=== PATIENT | female | born 1990 | race Caucasian/White ===

== ENCOUNTER → 2018-06-01 01:24 | Observation (INO) ==
[2018-05-31 23:03] VITALS: BP 131/83
--- NOTE | 2018-05-31 23:34 | OB/GYN Progress Note ---
Date of Encounter: 05/31/18 Time of Encounter: 23:32 - Assessment and Plan (1) 38 weeks gestation of Current Visit: Yes Status: Acute Admitted to observation for possible rupture of membranes Cervical exam on arrival /- We will recheck cervix after vaginosis panel returns. Patient is without change we will send her home to follow-up for her next routine visit as previously scheduled (2) Vaginal discharge during in third trimester Current Visit: Yes Status: Acute Sterile speculum exam completed with moderate amount of green yellow discharge noted in vaginal vault. Sample obtained for vaginosis panel and fern Fern negative, suspect bacterial vaginosis Awaiting vaginosis panel results. Will treat as indicated (3) NST (non-stress test) reactive Current Visit: Yes Status: Acute FHR 150 bpm, moderate variability, 15 x 15 accelerations, no decelerations. Irregular contractions Subjective - Subjective Principal diagnosis: Possible SROM Interval history: Madiha is a at 38 weeks [address] Gupta who presents today with possible leaking of fluid 2 days. Patient reports positive movement, denies vaginal bleeding. States she was 4 cm on last exam at her routine visit this week. Antepartum ROS: loss of fluid, movement normal, no vaginal bleeding Objective - Vital Signs Vital Signs: Vital Signs Pulse Resp BP 05/31/18 22:54 109 15 131/83 Intake and Output 05/31/18 05/31/18 05/31/18 07:59 15:59 23:59 Other: Weight 112.945 kg Patient Weight 05/31/18 23:59 Weight 112.945 kg - Exam FHR: category 1 FHR comments: FHR 150 bpm, moderate variability, +15x15 accels, no decels. Irregular contractions Auscultation: bilateral: normal Abdomen: Present: normal appearance, soft, gravid Uterus: Present: normal Cervical dilation: 5 Cervix effacement: 90% station: -2 Comments: Per RN exam
[2018-06-01 00:51] LABS: Candida DNA Not Detected (Not Detect); Gardnerella DNA Not Detected (Not Detect); Trichomonas DNA Not Detected (Not Detect)
[2018-06-01 01:44] LABS: Amphetamine Screen,Urine Negative ng/mL (Cutoff=1000); Barbiturate Screen,Urine Negative ng/mL (Cutoff=200); Benzodiazepines Screen,Urine Negative ng/mL (Cutoff=200); Cannabinoid Screen,Urine Negative ng/mL (Cutoff = 50); Cocaine Screen,Urine Negative ng/mL (Cutoff= 300); Opiate Screen,Urine Negative ng/mL (Cutoff=300); Phencyclidine Screen,Urine Negative ng/mL (Cutoff=25)
== END | disposition home or self-care (01) ==
LOC: 1NENULAB
PROVIDERS: ADMIT Registered Nurse; ATTEND Registered Nurse

== ENCOUNTER 2018-06-04 23:55 | Inpatient (IN) ==
[2018-06-04 22:54] LABS: Amphetamine Screen,Urine Negative ng/mL (Cutoff=1000); Barbiturate Screen,Urine Negative ng/mL (Cutoff=200); Benzodiazepines Screen,Urine Negative ng/mL (Cutoff=200); Cannabinoid Screen,Urine Negative ng/mL (Cutoff = 50); Cocaine Screen,Urine Negative ng/mL (Cutoff= 300); Opiate Screen,Urine Negative ng/mL (Cutoff=300); Phencyclidine Screen,Urine Negative ng/mL (Cutoff=25)
[~2018-06-04 23:55] MED LIST: *HR* Nalbuphine 10 MG/ML AMPUL IVP PRN; Famotidine 20 MG/2 ML VIAL IVP PRN; Metoclopramide 10 MG/2 ML VIAL IVP PRN; Naloxone 0.4 MG/ML INJ IVP PRN; Ondansetron 4 MG/2 ML VIAL IVP PRN
[2018-06-05 00:28] LABS: Basophils % 0.3 %; Eosinophils # 0.1 K/mcL (0.0-0.6); Eosinophils % 0.9 %; Hematocrit 33.4 % (35.3-44.9); Immature Granulocytes % 1.4 % (0-4); Lymphocytes # 1.8 K/mcL (0.6-4.6); Lymphocytes % 17.8 %; Mean Corpuscular HGB Conc 32.9 g/dL (31.6-35.5); Mean Corpuscular Hemoglobin 29.2 pg (28.0-33.3); Mean Corpuscular Volume 88.6 fL (83.0-100.0); Mean Platelet Volume 10.1 fL (9.4-12.4); Monocytes # 0.6 K/mcL (0.0-1.3); Monocytes % 6.3 %; Neutrophils # 7.3 K/mcL (1.6-8.9); Platelet Count 208 K/mcL (140-400); Red Blood Count 3.77 M/mcL (3.82-4.97); Red Cell Distribution Width 16.8 % (11.5-14.5); Segmented Neutrophils % 73.3 %
[2018-06-05] MEDS: Ringers Solution, Lactated 1,000 ML IVC SCH ×4 (00:34→12:16)
--- NOTE | 2018-06-05 06:51 | OB/GYN History & Physical ---
Date of Encounter: 06/05/18 Time of Encounter: 06:45 Assessment and Plan (1) 39 weeks gestation of Current visit: Yes Status: Acute Admit for augmentation of labor GBS negative Augment with pitocin AROM after epidural per patient request Anticipate vaginal delivery POC per consult with Dr Jacobson History of Present Illness Chief complaint: Contractions HPI: Ms. Whitfield is a 28 year old at 39 weeks 0 days that presents to triage with c/o contractions. She progressed from 4cm to 6 cm during triage. She states positive movement. She denies headaches, vision changes, epigastric pain, leaking of fluid, and vaginal bleeding. She has had no complications this . Labs: GBS negative Hep B NR RPR NR Blood type B+ Varicella Immune Hep C NR Rubella Immune HIV NR Past Med Surg Social Fam HX - Past Medical History Medical history: thyroid disease Additional medical history: hypothyroidism, anemia Psychiatric history: anxiety, depression - Past Surgical History Surgical History: non-contributory Additional surgical history: wisdom teeth extraction - Social History Smoking Status: Never smoker Smokeless Tobacco Status: No Alcohol use: none Drug use: none - Family History Sister Living Status: Still Living Hx Family Cardiac Disorders: No Hx Family Respiratory Disorders: No Hx Family Cancer: No Hx Family GI Disorders: No Hx Family Endocrine Disorder: No Hx Family Neuromuscular Disorders: No Hx Family Neurologic Disorders: No Hx Family HEENT Disorders: No Hx Family Autoimmune Disorders: No Obstetrical History - Pregnancies : 3 Para: 2 Term: 2 : 0 Ab's: 0 Livin Medications and Allergies Ferrous Sulfate 325 mg PO DAILY 05/31/18 [History] Levothyroxine Sodium 25 mcg PO DAILY 05/31/18 [History] Omeprazole 05/31/18 [History] Formula Tablet 1 tab PO DAILY 05/31/18 [History] Allergy/AdvReac Type Severity Reaction Status Date / Time [facility] [[facility]] Allergy Hives Verified 06/04/18 22:13 penicillin G procaine Allergy Hives Verified 06/04/18 22:13 Review of System OB All systems PM: reviewed and no additional remarkable complaints except as stated Exam - Constitutional Constitutional: well developed, well nourished, no acute distress, average body habitus - HEENT HEENT: Normocephaly, Mucus Membranes Moist - Neck Neck exam: full ROM - Lungs Respiratory exam: CTAB - Cardiovascular Cardiovascular exam: RRR, +S1, +S2 - Abdomen Abdomen: Present: bowel sounds normal, gravid, non tender - Extremities Extremities exam: normal capillary refill, normal inspection, radial pulses palpable and symmetrical Deep Tendon Reflex Grade: 2+ Normal - Vulva Vulva: bilateral: normal - Vagina Vagina: Present: normal moisture - Cervix Dilation: 6 (Per RN exam) Effacement: 90 Station: -2 - Uterus Uterus exam: Present: normal size, normal contour - Anus/Rectum Anus/Rectum: Present: normal perianal skin Results Result Diagrams: 06/05/18 00:00 Abnormal lab results RBC 3.77 M/mcL (3.82-4.97) L 06/05/18 00:00 Hgb 11.0 g/dL (11.5-15.4) L 06/05/18 00:00 Hct 33.4 % (35.3-44.9) L 06/05/18 00:00 RDW 16.8 % (11.5-14.5) H 06/05/18 00:00 All other labs normal. - VTE Reasons for not Prescribing Prophylaxis: Treatment not Indicated - Low risk for VTE
[2018-06-05] MEDS ORDERED: Oxytocin 20 units/ LR 1000 mL 20 UNIT/1,000 ML BAG IVC SCH ×2 (07:00→16:50)
[2018-06-05] MEDS ORDERED: Bupivacaine-MPF 0.25% 10 ML VIAL EP ONE (09:39)
[2018-06-05] MEDS ORDERED: *HR* FentaNYL (PF) 100 MCG/2 ML VIAL EP ONE (09:39)
[2018-06-05] MEDS ORDERED: *HR* FentaNYL (PF) 100 MCG/2 ML VIAL ONE (09:45)
[2018-06-05] MEDS ORDERED: Epidural Premix (fent/bupiv) 110 ML EP SCH (09:45)
[2018-06-05] MEDS ORDERED: Bupivacaine-MPF 0.25% 10 ML VIAL ONE (09:45)
[2018-06-05] MEDS ORDERED: Lidocaine -MPF 1% 5 ML AMPUL ONE (09:45)
--- NOTE | 2018-06-05 11:00 | Anesthesia Evaluation PreOp ---
Date of Encounter: 06/05/18 Time of Encounter: 10:15 - Past History Planned Operation: BRENDA Cardiac History: Denies any Significant Hx Pulmonary History: Asthma (well controlled) STORE MGR History: Denies Any Significant HX Other Medical History: Thyroid (hypothyroidism), Other (anxiety/depression) Anesthesia History: No Prior Anesthetic Complications (BRENDA x 2--no complications ; never had any procedure requiring GA; denies family h/o GA complications.) : Yes Alcohol Use: none Drug use: none Medications and Allergies Ferrous Sulfate 325 mg PO DAILY 05/31/18 [History] Levothyroxine Sodium 25 mcg PO DAILY 05/31/18 [History] Omeprazole 05/31/18 [History] Formula Tablet 1 tab PO DAILY 05/31/18 [History] Allergy/AdvReac Type Severity Reaction Status Date / Time Cefaclor [From [facility]] Allergy Hives Verified 06/04/18 22:13 penicillin G procaine Allergy Hives Verified 06/04/18 22:13 - Meds/Allergy Pre-op Review Medications Reviewed: Yes Allergies Reviewed: Yes Beta Blockers on Current Med List: No Anesthesia Results - Labs 06/05/18 00:00 Anesthesia Exam O2 Sat Height 1.68 m Height 1.68 m Weight 113.9 kg NPO (# of Hours): solids > 8hr Pain Scale: 8 Pain Scale Used: Numeric (1 - 10) - HEENT Pupil (Motor): Pupils equal Mallampati: II Teeth: Normal Oral Opening: Greater than 3 - STORE MGR LOC: Oriented STORE MGR Motor: Normal RUE, Normal LUE, Normal RLE, Normal LLE, Normal Face STORE MGR Sensory: Normal: RUE, LUE, RLE, LLE, Face - Cardiac Rhythm: Regular Murmur: None JVD: No Carotid Bruit: No - Pulmonary Breath Sounds: bilateral Clear Respiratory Effort: Symmetrical Anesthesia Assess/Plan ASA Score: 3 (BMI >40, hypothyroidism, asthma, anxiety/depression) Level of consciousness: Cooperative, Oriented, Restless Anesthetic Plan: Epidural Autologous Blood: No Monitoring Plan: Standard Monitors Recovery Plan: Other
--- NOTE | 2018-06-05 11:03 | Anesthesia Procedures ---
Date of Encounter: 06/05/18 Time of Encounter: 10:15 Procedures: Anesthesia - Epidural/Spinal Patient ID/Chart reviewed: Yes Patient examined: Yes OB Eval: Gestational age: 39 weeks 0 days OB Eval: : 3 OB Eval: Hx Para: 2 OB Eval: Contractions: Non-stressed pattern Consent Obtained: Yes Supplemental Oxygen: None/Room Air Site Prep: Aseptic Technique, Sterile prep and drape, Povidone-Iodine 1% Patient position: upright Local Anesthetic: Lidocaine 1% Amount of Local Anesthetic used: 3 Touhy Needle Gauge: 18 Touhy Needle Depth (cm): 5 Catheter Depth at Skin (cm): 10 Test Dose (1.5% Lido + Epi): Volume given (mls): 5 Test Dose Result: Negative Loading Dose: 0.25% Marcaine (mls): 5 Loading Dose: Fentanyl (mcg): 100 Loading Dose Administered: Thru Catheter Infusion Med: 0.125% Bupivacaine w/ 2 mcg/ml Fentanyl Infusion Rate (mls/hr): 14 (w/ demand bolus of 6mL q30min PRN) Catheter Secured in Place: Tegaderm, Tape Interspace Used: L3-L4 Loss of Resistance (ANDRÉS): Yes Blood: No CSF: No Paresthesia: No Procedure: successful x 1 attempt; Patient tolerated procedure well; VSS Vitals + FHT's: see Gisela NG's electronic records for VS entry.
--- NOTE | 2018-06-05 13:41 | OB Labor Progress Note ---
Date of Encounter: 06/05/18 Time of Encounter: 13:39 Labor Progress Note - Subjective Subjective: Patient doing well. denies any pain at this time - Cervix Cervix: 9.5/100/+1 - Heart Tones Heart Tones: 145 bpm moderate variability +15x15 accels occasional variable noted. Corrected with interventions - Canby Canby: 2.5-3 min apart - Interventions Interventions: SVE, repositioned - Plan Physician notified: Yes Physician notified details: Dr. Jacobson updated on patient's status Plan: Continue labor management anticipate
--- NOTE | 2018-06-05 15:43 | OB/GYN Procedure Note ---
Delivery - Delivery Date: 06/05/18 Provider: Shanell Kiran Intrapartum events: none Delivery induction: none Delivery monitor: external FHT, external uterine Anesthesia: epidural Quantitated Blood Loss: 300 - (s) Infant A Delivery Date: 06/05/18 Infant Delivery Time: 15:20 Presentation: vertex Position: TUAN Route of delivery: Gender: Male Viability: Viable Pounds: 9 Ounces: 0 Weight Gram: 4095 kg at 1 minute: 9 at 5 mins: 0 Shoulder Dystocia: not encountered Specimens collected: cord blood Placenta: spontaneous, uterine exploration Cord: 3 umbilical vessels - Repair Episiotomy: none Laceration Description: Perineal - 1st Degree (repaired with 3-0 vicryl) - Complications Delivery complications: none - Disposition Mom disposition: stable in LDR [place] disposition: stable in LDR - Comments Comments: Called to LDR patient complete and pushing. Patient placed in stirrups and prepped for vaginal delivery. Under maternal effort patient spontaneously delivered a viable male over a 1st degree laceration. No nuchal cord, shoulder dystocia or meconium was encountered. Infant was placed on maternal abdomen cord was clamped and cut after pulsations ceased. Cord blood was collected. The laceration was repaired with 3-0 vicryl. Placenta then delivered spontaneously and intact. Uterus was explored for blood clots. All counts correct, pericare provided. Both mother and infant stable in LDR for 2 hour recovery.
[2018-06-05] MEDS ORDERED: Acetaminophen 325 MG TABLET PO PRN (16:50)
[2018-06-05] MEDS ORDERED: Measles/Mumps/Rubella Vacc 0.5 ML VIAL SQ PRN (16:50)
[2018-06-05] MEDS: Ibuprofen 600 MG TABLET PO PRN (17:02)
[2018-06-06] MEDS: Ibuprofen 600 MG TABLET PO PRN (04:39)
[2018-06-06 09:00] VITALS: BP 114/74
[2018-06-06] MEDS ORDERED: Prenatal Vit/FA 1 EACH TABLET PO SCH (09:00)
--- NOTE | 2018-06-06 11:29 | Discharge Summary ---
Date of Encounter: 06/06/18 Time of Encounter: 11:27 - Discharge Diagnosis (1) Vaginal delivery Priority: Primary Status: Acute Comments: Pt meeting all milestones. Discharge home. - Discharge Medications Prescriptions: Ibuprofen [Motrin] 600 mg PO Q6HR PRN #30 tablet PRN Reason: Cramping Docusate [Colace] 100 mg PO BID #30 capsule Home Medications: Levothyroxine Sodium 25 mcg PO DAILY 05/31/18 [History] Formula Tablet 1 tab PO DAILY 05/31/18 [History] Docusate [Colace] 100 mg PO BID #30 capsule 06/06/18 [Rx] Ibuprofen [Motrin] 600 mg PO Q6HR PRN #30 tablet 06/06/18 [Rx] Allergies/Adverse Reactions: Allergy/AdvReac Type Severity Reaction Status Date / Time Cefaclor [From [facility]] Allergy Hives Verified 06/04/18 22:13 penicillin G procaine Allergy Hives Verified 06/04/18 22:13 Data Procedures and tests throughout hospitalization: Laboratory Tests 06/04/18 06/05/18 22:25 00:00 WBC 10.0 RBC 3.77 L Hgb 11.0 L Hct 33.4 L MCV 88.6 MCH 29.2 MCHC 32.9 RDW 16.8 H Plt Count 208 MPV 10.1 Immature Gran % 1.4 Seg Neutrophils % 73.3 Lymphocytes % 17.8 Monocytes % 6.3 Eosinophils % 0.9 Basophils % 0.3 Neutrophils # 7.3 Lymphocytes # 1.8 Monocytes # 0.6 Eosinophils # 0.1 Basophils # 0.0 Urine Opiates Screen Negative Ur Barbiturates Screen Negative Ur Phencyclidine Scrn Negative Ur Amphetamines Screen Negative U Benzodiazepines Scrn Negative Urine Cocaine Screen Negative U Marijuana (THC) Screen Negative Ur Drug Screen Interp See Below Date of admission: 06/04/18 23:55 Primary care physician: Aaliyah Ann MD Consults: 06/05/18 16:50 Consult to Configuration Management Specialist [CONS] Routine Comment: Vaginal delivery, consult needed Discharging clinician: Maryam Ramirez Anticipated date of discharge: 06/06/18 - Patient Status Disposition: Home, Self-Care Condition: Good Functional capacity at discharge: independent ambulation Overall status at discharge: patient is progressing back to baseline - Discharge Instructions Follow Up With: Aaliyah Ann MD [Primary Care Provider] - Madiha Gupta MD [Partnered Physician] - - Diet and Activity Activity: increase activity as tolerated Diet: regular diet Hospital Course Reason for admission: active labor Delivery: Episiotomy: none Laceration: none Other procedures: none complications: none Discharge diagnosis: IUP at term delivered [place] baby: male Hospital course: - Delivery Date: 06/05/18 Provider: Shanell Kiran Intrapartum events: none Delivery induction: none Delivery monitor: external FHT, external uterine Anesthesia: epidural Quantitated Blood Loss: 300 - (s) A Infant Delivery Date: 06/05/18 Infant Delivery Time: 15:20 Presentation: vertex Position: TUAN Route of delivery: Gender: Male Viability: Viable Pounds: 9 Ounces: 0 Weight Gram: 4095 kg at 1 minute: 9 at 5 mins: 0 Shoulder Dystocia: not encountered Specimens collected: cord blood Placenta: spontaneous, uterine exploration Cord: 3 umbilical vessels - Repair Episiotomy: none Laceration Description: Perineal - 1st Degree (repaired with 3-0 vicryl) - Complications Delivery complications: none - Disposition Mom disposition: home PPD1 disposition: home with mother, bottle feeding Time Attestation: Total time spent providing and/or coordinating discharge services: Time Spent: Less than 30 minutes Exam - Constitutional Vitals: Temp Pulse Resp BP Pulse Ox 97.7 F 86 16 114/74 97 06/06/18 08:30 06/06/18 08:30 06/06/18 10:11 06/06/18 08:30 06/06/18 08:30 General appearance IM: A&O X 3 - Respiratory Respiratory exam: Present: CTAB - Cardiovascular Cardiovascular exam IM: Present: RRR - GI/Abdominal GI/Abdominal exam IM: soft - Uterine Tone: Firm Uterus Position: 1 Finger Below Umbilicus - Extremities Exam Extremities exam IM: Present: pedal edema (mild bilaterally) - Neurological Exam Neurological exam: normal gait, oriented X3 - Psychiatric Additional comments: reports good mood. Pt plans to start OCP's for contraception in 4-6 weeks
== END 2018-06-06 12:50 | disposition home or self-care (01) | DRG 560 ==
LOC: 1NENULAB → 1NENUOBS 06-05 17:59
PROVIDERS: ADMIT Advanced Practice Midwife; ATTEND Advanced Practice Midwife

== ENCOUNTER → 2021-05-13 22:30 | Observation (INO) ==
[2021-05-13 21:51] LABS: Bacteria,Urine Few per hpf (None-Few); Bilirubin,Urine Negative (Negative); Blood,Urine Negative (Negative); Clarity,Urine Clear (Clear); Color,Urine Light-Orange (Yellow); Glucose,Urine (UA) Normal (Normal); Ketones,Urine Negative (Negative); Leukocyte Esterase,Urine Negative (Negative); Mucus,Urine Few per lpf (None-Few); Nitrite,Urine Negative (Negative); Protein,Urine 50 mg/dL (Neg-Trace); RBC,Urine 0-3 per hpf (0-3); Specific Gravity,Urine > 1.030 (1.010-1.025); Squamous Epithelial Cell,Urine Few per hpf (None-Few); WBC,Urine 0-3 per hpf (0-3)
== END | disposition home or self-care (01) ==
LOC: 1NENULAB
PROVIDERS: ADMIT Obstetrics & Gynecology; ATTEND Obstetrics & Gynecology